=== PATIENT | female | born 1950 | race Caucasian/White ===

== ENCOUNTER 2017-06-18 16:40 | Inpatient (IN) | payer MEDICARE, OTHER ==
[~2017-06-18] VITALS: Ht 167.6 cm; Wt 104.2 kg
[~2017-06-18 16:40] MED LIST: GLUCOPHAGE500 MG/TAB PO; HYZAAR 25 MG-101 TAB PO; LANTUS100 U/ML SQ; NOVOLOG 100U100 U/M1 SQ; ZOCOR 20MG20 MG PO; ZOCOR5 MG
[2017-06-18 16:59] VITALS: BP 156/65; PULSE 84; TEMP 99.5
[2017-06-18] MEDS ORDERED: DITROPAN XL10 MG PO (17:12)
[2017-06-18] MEDS ORDERED: PLAVIX 75MG TAB75 MG PO (17:12)
[2017-06-18] MEDS ORDERED: NORVASC 10MG10 MG PO (17:12)
[2017-06-18] MEDS ORDERED: COREG 25MG25 MG/TAB PO (17:12)
[2017-06-18] MEDS ORDERED: FLONASE NASAL S16 GM NS (17:12)
[2017-06-18] MEDS ORDERED: TRESIBA FL100 UNIT/1 SQ (17:12)
[2017-06-18] MEDS ORDERED: ASPIRIN 81M81 MG/TA2 PO (18:00)
[2017-06-18] MEDS ORDERED: PEPCID 20MG TAB20 MG PO (18:00)
[2017-06-18] MEDS ORDERED: ZYRTEC10MGSGL PO (18:00)
[2017-06-18] MEDS ORDERED: BENICAR HCT 251 TAB PO (18:01)
[2017-06-18] MEDS ORDERED: NOVOLOG FLEX100 U/ML SQ (18:03)
[2017-06-18] MEDS ORDERED: ZOCOR 20MG20 MG PO (18:14)
[2017-06-18] MEDS ORDERED: ROCEPHIN VIA1 G/VIAL IJ (18:17)
[2017-06-18] MEDS ORDERED: CIPRO 500MG TA500 MG PO (18:18)
[2017-06-18 19:22] VITALS: BP 165/69; PULSE 84; TEMP 100.3
[2017-06-18 23:12] VITALS: BP 146/70; PULSE 89; TEMP 98.9
[2017-06-19] VITALS (660 sets, daily range): BP systolic 120–167; BP diastolic 55–97; PULSE 74–91; TEMP 97.6–99.1; O2SAT 86–98
[2017-06-19 08:07] LABS: INR 1.3 (0.8-3.0); PROTHROMBIN TIME 14.3 SECONDS (9.7-12.8)
[2017-06-19 08:09] LABS: MEAN CELL VOLUME 98 fl (80.0-100.0); MEAN CORPUSCULAR HGB CONC 33 g/dl (33.0-37.0); MEAN PLATELET VOLUME 10.1 fl (7.4-10.4); PLATELET COUNT 201 K/mm3 (130-400); RED BLOOD COUNT 3.24 M/mm3 (4.10-5.30); REDCELL DISTRIBUTION WIDTH-CV 13.1 % (11.5-14.5); WHITE BLOOD COUNT 7.3 K/mm3 (4.8-10.8)
[2017-06-19 08:12] LABS: CALCIUM 8.5 mg/dL (8.4-10.2); CREATININE, serum 0.8 mg/dL (0.52-1.25); POTASSIUM 3.6 mmol/L (3.4-5.0)
[2017-06-19 08:13] LABS: HEMATOCRIT 31.7 % (37.0-47.0); HEMOGLOBIN 10.3 g/dl (12.5-16.0); MEAN CORPUSCULAR HEMOGLOBIN 32 pg (27.0-31.0)
[2017-06-20] VITALS (264 sets, daily range): BP systolic 121–158; BP diastolic 49–79; PULSE 62–80; TEMP 97.8–98.8; O2SAT 85–98
[2017-06-20 06:05] LABS: BASO % 0.3 % (0.0-2.0); EOS # 0.1 (0.0-0.7); EOS % 1.8 % (0-4.0); GRAN # 4.8 (1.4-6.5); GRAN % 61.5 % (42.2-75.2); LYMPH # 1.9 (1.2-3.4); LYMPH % 25.1 % (20.0-51.0); MEAN CELL VOLUME 97 fl (80.0-100.0); MEAN CORPUSCULAR HGB CONC 32 g/dl (33.0-37.0); MEAN PLATELET VOLUME 9.8 fl (7.4-10.4); MONO # 0.8 (0.1-0.6); MONO % 10.9 % (1.7-9.3); PLATELET COUNT 208 K/mm3 (130-400); RED BLOOD COUNT 3.16 M/mm3 (4.10-5.30); REDCELL DISTRIBUTION WIDTH-CV 12.9 % (11.5-14.5); WHITE BLOOD COUNT 7.7 K/mm3 (4.8-10.8)
[2017-06-20 06:11] LABS: HEMATOCRIT 30.7 % (37.0-47.0); HEMOGLOBIN 9.9 g/dl (12.5-16.0); MEAN CORPUSCULAR HEMOGLOBIN 31 pg (27.0-31.0)
[2017-06-20 06:22] LABS: CALCIUM 8.3 mg/dL (8.4-10.2); CREATININE, serum 0.84 mg/dL (0.52-1.25); POTASSIUM 3.2 mmol/L (3.4-5.0)
[2017-06-21 00:33] VITALS: BP 138/65; PULSE 60; TEMP 98.1
[2017-06-21 04:09] VITALS: BP 150/66; PULSE 67; TEMP 98.9
[2017-06-21 08:14] VITALS: BP 142/51; PULSE 69; TEMP 97.7
[2017-06-21] MEDS ORDERED: CEFTIN 250250 MG/TAB PO (09:08)
[2017-06-21] MEDS ORDERED: NITROSTAT0.4 MG/TAB SL (09:09)
[2017-06-21] MEDS ORDERED: KEPPRA250 MG PO (09:14)
[2017-06-21 11:15] VITALS: BP 118/52; PULSE 57; TEMP 98.3
== END 2017-06-21 17:15 | disposition home or self-care (01) | DRG 246 ==
LOC: ICU 16:40 → MEDICAL 16:40 → ICU 06-19 09:28 → MEDICAL 06-20 20:20
PROVIDERS: Internal Medicine Interventional Cardiology
PROC: 027135Z Dilation of Coronary Artery, Two Arteries with Two Drug-eluting Intraluminal Devices, Percutaneous Approach (ICD-10-PCS; principal; 2017-06-19)
PROC: B2111ZZ Fluoroscopy of Multiple Coronary Arteries using Low Osmolar Contrast (ICD-10-PCS; 2017-06-19)
DX: I21.4 Non-ST elevation (NSTEMI) myocardial infarction (principal); Q28.2 Arteriovenous malformation of cerebral vessels; N39.0 Urinary tract infection, site not specified; N17.9 Acute kidney failure, unspecified; G40.89 Other seizures; I25.10 Atherosclerotic heart disease of native coronary artery without angina pectoris; B96.20 Unspecified Escherichia coli [E. coli] as the cause of diseases classified elsewhere; I69.311 Memory deficit following cerebral infarction; I10 Essential (primary) hypertension; E11.9 Type 2 diabetes mellitus without complications; Z79.4 Long term (current) use of insulin; Z87.891 Personal history of nicotine dependence
CPT/HCPCS: 99223; 99232-AI; 99239; A9585; C1725; C1760; C1769; C1874; C1887; C1894; C9600; C9601; J0583; J0696; J1815; J2250; J3010; Q9967

== ENCOUNTER 2017-08-23 11:25 | Inpatient (IN) | payer MEDICARE, OTHER ==
[~2017-08-23] VITALS: Ht 167.6 cm; Wt 101.1 kg
[~2017-08-23 11:25] MED LIST changes: +ASPIRIN 81M81 MG/TA2 PO; +BENICAR HCT 251 TAB PO; +CEFTIN 250250 MG/TAB PO; +CIPRO 500MG TA500 MG PO; +COREG 25MG25 MG/TAB PO; +DITROPAN XL10 MG PO; +FLONASE NASAL S16 GM NS; +KEPPRA250 MG PO; +NITROSTAT0.4 MG/TAB SL; +NORVASC 10MG10 MG PO; +NOVOLOG FLEX100 U/ML SQ; +PEPCID 20MG TAB20 MG PO; +PLAVIX 75MG TAB75 MG PO; +ROCEPHIN VIA1 G/VIAL IJ; +TRESIBA FL100 UNIT/1 SQ; +ZYRTEC10MGSGL PO
[2017-08-23 12:26] LABS: INR 1.2 (0.8-3.0); PROTHROMBIN TIME 12.9 SECONDS (9.7-12.8)
[2017-08-23 12:27] LABS: BASO % 0.4 % (0.0-2.0); EOS % 0.2 % (0-4.0); GRAN # 6.2 (1.4-6.5); GRAN % 75.2 % (42.2-75.2); HEMATOCRIT 37.1 % (37.0-47.0); HEMOGLOBIN 12.6 g/dl (12.5-16.0); LYMPH # 1.5 (1.2-3.4); LYMPH % 17.7 % (20.0-51.0); MEAN CELL VOLUME 93 fl (80.0-100.0); MEAN CORPUSCULAR HEMOGLOBIN 32 pg (27.0-31.0); MEAN CORPUSCULAR HGB CONC 34 g/dl (33.0-37.0); MEAN PLATELET VOLUME 9.6 fl (7.4-10.4); MONO # 0.5 (0.1-0.6); PLATELET COUNT 252 K/mm3 (130-400); WHITE BLOOD COUNT 8.3 K/mm3 (4.8-10.8)
[2017-08-23 12:28] LABS: COLLECTION METHOD CATHETER
[2017-08-23 12:46] LABS: ADJUSTED CALCIUM 9.1 mg/dL (8.4-10.2); ALANINE AMINOTRANSFERASE 35 U/L (9-52); ALBUMIN 4.4 gm/dL (3.5-5.0); ALKALINE PHOSPHATASE 138 U/L (50-136); ANION GAP 12 mmol/L (7-16); BILIRUBIN,TOTAL 0.8 mg/dL (0.0-1.0); BLOOD UREA NITROGEN 16 mg/dL (7-17); CALCIUM 9.4 mg/dL (8.4-10.2); CARBON DIOXIDE 25 mmol/L (22-30); CHLORIDE 100 mmol/L (98-107); CREATINE KINASE 73 U/L (30-135); CREATININE, serum 0.77 mg/dL (0.52-1.25); GLUCOSE 273 mg/dL (74-106); POTASSIUM 3.8 mmol/L (3.4-5.0); SODIUM 137 mmol/L (137-145); TOTAL PROTEIN 7.5 gm/dL (6.4-8.2)
[2017-08-23 12:48] LABS: C-REACTIVE PROTEIN < 0.5 mg/dL (0.0-0.9)
[2017-08-23 12:48] LABS: PH 5 (5-8); SQUAMOUS EPITHELIAL 0-2 /hpf; URINE APPEARANCE Hazy; URINE BACTERIA None Seen /hpf; URINE BILIRUBIN Negative (NEGATIVE); URINE BLOOD 1+ (NEGATIVE); URINE COLOR Yellow; URINE GLUCOSE 3+ (NEGATIVE); URINE KETONE 1+ (NEGATIVE); URINE LEUKOCYTE ESTERASE Negative (NEGATIVE); URINE PROTEIN(semi-quant) 1+ (NEGATIVE); URINE RBC 0-2 /hpf; URINE UROBILINOGEN Negative (NEGATIVE); URINE WBC 20-50 /hpf
[2017-08-23 13:32] LABS: B-TYPE NATRIURETIC PEPTIDE 151 pg/mL (0-125); TROPONIN-I < 0.012 ng/mL (0.000-0.034)
[2017-08-23 15:18] VITALS: BP 103/45; PULSE 96; TEMP 97.1
[2017-08-23] MEDS ORDERED: KEPPRA 500MG500 MG PO (15:38)
[2017-08-23] MEDS ORDERED: CRESTOR40 MG PO (15:42)
[2017-08-23 20:12] VITALS: BP 142/59; PULSE 84; TEMP 99
[2017-08-23 23:59] VITALS: BP 138/58; PULSE 85; TEMP 100.3
[2017-08-24 03:48] VITALS: BP 151/70; PULSE 79; TEMP 99
[2017-08-24 07:43] LABS: BASO % 0.6 % (0.0-2.0); EOS # 0.1 (0.0-0.7); EOS % 1.6 % (0-4.0); GRAN # 3.3 (1.4-6.5); GRAN % 52.4 % (42.2-75.2); LYMPH # 2.4 (1.2-3.4); LYMPH % 37.3 % (20.0-51.0); MEAN CELL VOLUME 94 fl (80.0-100.0); MEAN CORPUSCULAR HGB CONC 33 g/dl (33.0-37.0); MEAN PLATELET VOLUME 9.8 fl (7.4-10.4); MONO # 0.5 (0.1-0.6); MONO % 7.8 % (1.7-9.3); PLATELET COUNT 236 K/mm3 (130-400); RED BLOOD COUNT 3.62 M/mm3 (4.10-5.30); WHITE BLOOD COUNT 6.4 K/mm3 (4.8-10.8)
[2017-08-24 07:51] LABS: CALCIUM 8.5 mg/dL (8.4-10.2); CREATININE, serum 0.71 mg/dL (0.52-1.25); POTASSIUM 3.2 mmol/L (3.4-5.0)
[2017-08-24 08:00] VITALS: BP 137/69; PULSE 72; TEMP 98.6
[2017-08-24 08:04] LABS: HEMATOCRIT 33.9 % (37.0-47.0); HEMOGLOBIN 11.3 g/dl (12.5-16.0); MEAN CORPUSCULAR HEMOGLOBIN 31 pg (27.0-31.0)
[2017-08-24 13:14] VITALS: BP 128/51; PULSE 71; TEMP 98.6
[2017-08-24 16:13] VITALS: BP 122/57; PULSE 66; TEMP 98
[2017-08-24 20:07] VITALS: BP 127/54; BP 197/54; PULSE 59; TEMP 98.6
[2017-08-25 00:44] VITALS: BP 109/82; PULSE 80; TEMP 98.6
[2017-08-25 05:21] VITALS: BP 120/65; PULSE 80; TEMP 98.1
[2017-08-25 07:19] LABS: BASO % 0.6 % (0.0-2.0); EOS # 0.2 (0.0-0.7); GRAN # 3.6 (1.4-6.5); GRAN % 56.9 % (42.2-75.2); LYMPH % 31.9 % (20.0-51.0); MEAN CELL VOLUME 94 fl (80.0-100.0); MEAN CORPUSCULAR HGB CONC 33 g/dl (33.0-37.0); MONO # 0.5 (0.1-0.6); MONO % 7.3 % (1.7-9.3); PLATELET COUNT 229 K/mm3 (130-400); RED BLOOD COUNT 3.76 M/mm3 (4.10-5.30); WHITE BLOOD COUNT 6.3 K/mm3 (4.8-10.8)
[2017-08-25 07:23] LABS: HEMATOCRIT 35.4 % (37.0-47.0); HEMOGLOBIN 11.8 g/dl (12.5-16.0); MEAN CORPUSCULAR HEMOGLOBIN 31 pg (27.0-31.0)
[2017-08-25 07:38] LABS: CALCIUM 8.5 mg/dL (8.4-10.2); CREATININE, serum 0.79 mg/dL (0.52-1.25); POTASSIUM 3.7 mmol/L (3.4-5.0)
[2017-08-25 08:14] VITALS: BP 137/62; PULSE 77; TEMP 98.4
[2017-08-25] MEDS ORDERED: CEFTIN 250250 MG/TAB PO (08:46)
== END 2017-08-25 11:29 | disposition home or self-care (01) | DRG 690 ==
LOC: COL.ER 11:25 → MEDICAL 13:37
PROVIDERS: Emergency Medicine; Nurse Practitioner Family
DX: N39.0 Urinary tract infection, site not specified (principal); Z66 Do not resuscitate; I25.10 Atherosclerotic heart disease of native coronary artery without angina pectoris; B96.20 Unspecified Escherichia coli [E. coli] as the cause of diseases classified elsewhere; Z95.5 Presence of coronary angioplasty implant and graft; E11.9 Type 2 diabetes mellitus without complications; I10 Essential (primary) hypertension; E87.6 Hypokalemia; Z87.891 Personal history of nicotine dependence; I69.318 Other symptoms and signs involving cognitive functions following cerebral infarction; I69.312 Visuospatial deficit and spatial neglect following cerebral infarction
CPT/HCPCS: 99222-AI; 99232-AI; 99239; J0696; J1650; J1815; J2405; J7030

== ENCOUNTER → 2017-09-19 | Outpatient (CLI) | payer MEDICARE, OTHER ==
[~2017-09-19] MED LIST changes: +CRESTOR40 MG PO; +KEPPRA 500MG500 MG PO
== END ==
LOC: COL.RAD 11:15
DX: N28.89 Other specified disorders of kidney and ureter (principal); N39.3 Stress incontinence (female) (male); Z96.0 Presence of urogenital implants

== ENCOUNTER → 2017-09-20 | Outpatient (CLI) | payer MEDICARE, OTHER | LOC: SUN.DIA 09:26 | DX: E11.9 Type 2 diabetes mellitus without complications (principal); Z79.4 Long term (current) use of insulin; E78.5 Hyperlipidemia, unspecified; I11.9 Hypertensive heart disease without heart failure; I67.9 Cerebrovascular disease, unspecified; E66.9 Obesity, unspecified; Z68.36 Body mass index [BMI] 36.0-36.9, adult; Z71.3 Dietary counseling and surveillance; Z87.891 Personal history of nicotine dependence | CPT/HCPCS: G0108 ==

== ENCOUNTER → 2017-10-03 | Outpatient (CLI) | payer MEDICARE, OTHER | LOC: SUN.DIA 09-19 09:22 | DX: E11.9 Type 2 diabetes mellitus without complications (principal); Z79.4 Long term (current) use of insulin; I67.9 Cerebrovascular disease, unspecified; I11.9 Hypertensive heart disease without heart failure; E78.5 Hyperlipidemia, unspecified; E66.9 Obesity, unspecified; Z71.3 Dietary counseling and surveillance; Z87.891 Personal history of nicotine dependence | CPT/HCPCS: G0109 ==

== ENCOUNTER → 2017-10-04 | Outpatient (CLI) | payer MEDICARE, OTHER | LOC: SUN.DIA 10:59 | DX: E11.9 Type 2 diabetes mellitus without complications (principal); Z79.4 Long term (current) use of insulin; I11.9 Hypertensive heart disease without heart failure; E78.5 Hyperlipidemia, unspecified; E66.9 Obesity, unspecified; Z68.35 Body mass index [BMI] 35.0-35.9, adult; Z71.3 Dietary counseling and surveillance; Z87.891 Personal history of nicotine dependence ==

== ENCOUNTER → 2017-10-10 | Outpatient (CLI) | payer MEDICARE, OTHER | LOC: SUN.DIA 10:38 | DX: E11.9 Type 2 diabetes mellitus without complications (principal); Z79.4 Long term (current) use of insulin; I67.9 Cerebrovascular disease, unspecified; I11.9 Hypertensive heart disease without heart failure; E78.5 Hyperlipidemia, unspecified; E66.9 Obesity, unspecified; Z71.3 Dietary counseling and surveillance; Z87.891 Personal history of nicotine dependence | CPT/HCPCS: G0109 ==

== ENCOUNTER 2017-10-15 20:57 | Emergency (ER) | payer MEDICARE, OTHER ==
[~2017-10-15] VITALS: Ht 167.6 cm; Wt 97.7 kg
[2017-10-15 20:58] VITALS: TEMP 98.4
[2017-10-15 23:13] VITALS: BP 160/81; PULSE 74
== END 2017-10-15 23:15 | disposition home or self-care (01) ==
LOC: COL.ER 20:57
DX: S01.81XA Laceration without foreign body of other part of head, initial encounter (principal); E11.9 Type 2 diabetes mellitus without complications; I10 Essential (primary) hypertension; I25.2 Old myocardial infarction; Z86.73 Personal history of transient ischemic attack (TIA), and cerebral infarction without residual deficits; Z79.82 Long term (current) use of aspirin; Z79.4 Long term (current) use of insulin; W01.198A Fall on same level from slipping, tripping and stumbling with subsequent striking against other object, initial encounter; Y92.009 Unspecified place in unspecified non-institutional (private) residence as the place of occurrence of the external cause

== ENCOUNTER → 2017-10-17 | Outpatient (CLI) | payer MEDICARE, OTHER | LOC: SUN.DIA 18:00 | DX: E11.9 Type 2 diabetes mellitus without complications (principal); Z79.4 Long term (current) use of insulin; I67.9 Cerebrovascular disease, unspecified; I11.9 Hypertensive heart disease without heart failure; E78.5 Hyperlipidemia, unspecified; E66.9 Obesity, unspecified; Z71.3 Dietary counseling and surveillance; Z87.891 Personal history of nicotine dependence | CPT/HCPCS: G0109 ==

== ENCOUNTER → 2017-10-21 | Emergency (ER) | payer MEDICARE, OTHER ==
[2017-10-21 13:02] VITALS: BP 153/68; PULSE 78; TEMP 97.7
== END ==
LOC: COL.ER 12:55
DX: S01.81XD Laceration without foreign body of other part of head, subsequent encounter (principal); X58.XXXD Exposure to other specified factors, subsequent encounter

== ENCOUNTER → 2017-11-07 | Outpatient (CLI) | payer MEDICARE, OTHER | LOC: SUN.DIA 10-25 10:56 | DX: E11.9 Type 2 diabetes mellitus without complications (principal); Z79.4 Long term (current) use of insulin; I67.9 Cerebrovascular disease, unspecified; I11.9 Hypertensive heart disease without heart failure; E78.5 Hyperlipidemia, unspecified; E66.9 Obesity, unspecified; Z71.3 Dietary counseling and surveillance; Z87.891 Personal history of nicotine dependence | CPT/HCPCS: G0109 ==

== ENCOUNTER → 2017-11-20 | Outpatient (CLI) | payer MEDICARE, OTHER | LOC: SUN.DIA 12:52 | DX: E11.9 Type 2 diabetes mellitus without complications (principal); Z79.4 Long term (current) use of insulin; I67.9 Cerebrovascular disease, unspecified; I11.9 Hypertensive heart disease without heart failure; E78.5 Hyperlipidemia, unspecified; E66.9 Obesity, unspecified; Z68.35 Body mass index [BMI] 35.0-35.9, adult; Z71.3 Dietary counseling and surveillance; Z87.891 Personal history of nicotine dependence ==

== ENCOUNTER → 2018-01-22 | Outpatient (CLI) | payer MEDICARE, OTHER | LOC: SUN.DIA 10:34 | DX: E11.9 Type 2 diabetes mellitus without complications (principal); Z79.4 Long term (current) use of insulin; I67.9 Cerebrovascular disease, unspecified; I11.9 Hypertensive heart disease without heart failure; E78.5 Hyperlipidemia, unspecified; E66.9 Obesity, unspecified; Z68.36 Body mass index [BMI] 36.0-36.9, adult; Z71.3 Dietary counseling and surveillance; Z87.891 Personal history of nicotine dependence ==

== ENCOUNTER → 2018-06-20 | Outpatient (CLI) | payer MEDICARE, OTHER | LOC: SUN.DIA 05-28 16:20 | DX: E11.9 Type 2 diabetes mellitus without complications (principal); E78.5 Hyperlipidemia, unspecified; I10 Essential (primary) hypertension; E66.9 Obesity, unspecified; Z79.4 Long term (current) use of insulin ==

== ENCOUNTER → 2018-07-31 | Outpatient (CLI) | payer MEDICARE, OTHER | LOC: SUN.DIA 11:11 | DX: E11.9 Type 2 diabetes mellitus without complications (principal); E78.5 Hyperlipidemia, unspecified; I10 Essential (primary) hypertension; E66.9 Obesity, unspecified; Z79.4 Long term (current) use of insulin | CPT/HCPCS: G0270 ==

== ENCOUNTER → 2018-09-11 | Outpatient (CLI) | payer MEDICARE, OTHER | LOC: SUN.DIA 10:56 | DX: E11.9 Type 2 diabetes mellitus without complications (principal); E78.5 Hyperlipidemia, unspecified; I10 Essential (primary) hypertension; E66.9 Obesity, unspecified; Z79.4 Long term (current) use of insulin | CPT/HCPCS: G0270 ==

== ENCOUNTER → 2019-02-04 | Outpatient (CLI) | payer MEDICARE, OTHER | LOC: MC.RAD 09:30 | DX: Z12.31 Encounter for screening mammogram for malignant neoplasm of breast (principal) ==

== ENCOUNTER 2019-02-22 18:52 | Inpatient (IN) | payer MEDICARE, OTHER ==
[~2019-02-22] VITALS: Ht 167.6 cm; Wt 100.7 kg
[2019-02-22 19:38] LABS: BASO % 0.4 % (0.0-2.0); EOS # 0.2 (0.0-0.7); EOS % 2.4 % (0-4.0); GRAN # 6.5 (1.4-6.5); GRAN % 84.5 % (42.2-75.2); HEMATOCRIT 37.8 % (37.0-47.0); HEMOGLOBIN 12.6 g/dl (12.5-16.0); LYMPH # 0.6 (1.2-3.4); LYMPH % 8.2 % (20.0-51.0); MEAN CELL VOLUME 94 fl (80.0-100.0); MEAN CORPUSCULAR HEMOGLOBIN 31 pg (27.0-31.0); MEAN CORPUSCULAR HGB CONC 33 g/dl (33.0-37.0); MEAN PLATELET VOLUME 9.2 fl (7.4-10.4); MONO # 0.3 (0.1-0.6); MONO % 4.1 % (1.7-9.3); PLATELET COUNT 214 K/mm3 (130-400); RED BLOOD COUNT 4.02 M/mm3 (4.10-5.30); REDCELL DISTRIBUTION WIDTH-CV 13.4 % (11.5-14.5)
[2019-02-22 19:51] LABS: ALBUMIN 3.8 gm/dL (3.5-5.0); BILIRUBIN,TOTAL 0.6 mg/dL (0.0-1.0); CALCIUM 8.7 mg/dL (8.4-10.2); CREATININE, serum 1.04 (0.52-1.25); POTASSIUM 3.8 mmol/L (3.4-5.0); TOTAL PROTEIN 6.7 gm/dL (6.4-8.2)
[2019-02-22] MEDS ORDERED: TRULICITY0.75 MG/0. (20:17)
[2019-02-22] MEDS ORDERED: BACTRIM DS 8001 TAB (20:17)
[2019-02-22 20:25] LABS: COLLECTION METHOD CLEAN CATCH
[2019-02-22 20:33] LABS: MUCOUS Present /lpf; PH 5 (5-8); SQUAMOUS EPITHELIAL 0-2 /hpf; URINE APPEARANCE Hazy; URINE BACTERIA None Seen /hpf; URINE BILIRUBIN Negative (NEGATIVE); URINE BLOOD Negative (NEGATIVE); URINE COLOR Yellow; URINE GLUCOSE Negative (NEGATIVE); URINE KETONE Negative (NEGATIVE); URINE LEUKOCYTE ESTERASE Negative (NEGATIVE); URINE NITRATE Negative (NEGATIVE); URINE PROTEIN(semi-quant) 2+ (NEGATIVE); URINE RBC 0-2 /hpf; URINE UROBILINOGEN Negative (NEGATIVE)
[2019-02-22 21:16] LABS: INR 1.4 (0.8-3.0); PROTHROMBIN TIME 15.9 SECONDS (9.7-12.8)
[2019-02-22 22:55] VITALS: BP 120/72; PULSE 84; TEMP 98.6
[2019-02-22] MEDS ORDERED: THE MEDICINE S200 M2 PO (23:38)
--- NOTE | 2019-02-23 01:11 | NUR ---
PT AWAKE IN ROOM. PT WAS ADVISED THAT STROKE SCALE WILL BE DONE EVERY HOUR AND NEURO'S EVERY 2 HOURS. PT'S BS 109, GAVE SANDWICH BOX AND WATER, REQUESTED. PT HAS NO S/S OF PAIN OR DISCOMFORT NOTED. CALL LIGHT WITHIN REACH.
[2019-02-23 03:31] VITALS: BP 153/68; PULSE 90; TEMP 99.1
--- NOTE | 2019-02-23 04:41 | NUR ---
PLACED WALKER IN PT'S ROOM. PT ADVISES THAT SHE IS SUPPOSE TO USE A WALKER AT HOME AND SHE DOES HAVE ONE, BUT SHE DOES NOT USE IT VERY OFTEN. PT REFUSES TO USE SCDs. CALL LIGHT WITHIN REACH.
[2019-02-23 06:25] LABS: RED BLOOD COUNT 3.59 M/mm3 (4.10-5.30)
[2019-02-23 06:26] LABS: BASO % 0.4 % (0.0-2.0); EOS # 0.2 (0.0-0.7); GRAN % 71.3 % (42.2-75.2); HEMOGLOBIN 11.2 g/dl (12.5-16.0); LYMPH % 17.1 % (20.0-51.0); MEAN CELL VOLUME 96 fl (80.0-100.0); MEAN CORPUSCULAR HEMOGLOBIN 31 pg (27.0-31.0); MEAN CORPUSCULAR HGB CONC 33 g/dl (33.0-37.0); MEAN PLATELET VOLUME 9.7 fl (7.4-10.4); MONO # 0.4 (0.1-0.6); MONO % 6.7 % (1.7-9.3); PLATELET COUNT 157 K/mm3 (130-400); REDCELL DISTRIBUTION WIDTH-CV 13.6 % (11.5-14.5)
[2019-02-23 06:35] LABS: CALCIUM 7.9 mg/dL (8.4-10.2); CREATININE, serum 0.96 (0.52-1.25); POTASSIUM 3.4 mmol/L (3.4-5.0)
[2019-02-23 06:36] LABS: HEMATOCRIT 34.4 % (37.0-47.0)
--- NOTE | 2019-02-23 07:23 | NUR ---
UNEVENTFUL NIGHT, PT RESTED WELL. PT DID FINE ON NEURO CHECKS AND STROKE SCALE, BUT WHEN AMBULATING, PT WAS VERY UNSTEADY. DENIES PAIN OR DISCOMFORT AND CALL LIGHT WITHIN REACH.
[2019-02-23 07:29] VITALS: BP 152/58; PULSE 88; TEMP 98.2
--- NOTE | 2019-02-23 08:32 | NUR ---
Pt is awake and A/Ox4. She denies pain at this time. Saline lock to right FA is free of complications. Pt is up with 1x assist with walker without complications. Pt has steady gait but seems to get ahead of herself with the walker. She states she feels more stable today. Neuro checks are unremarkable. Pt denies any other needs.
--- NOTE | 2019-02-23 10:29 | NUR ---
Patient lives at home with her (Per Anderson) in [place], [place] and plans to return home with her upon recovery. Patient uses a walker for mobility assistance as needed and has no been ambulating as well recently due to the left side of her body being weaker/numb. Patient's is her primary caregiver, the patient's primary care physician is Dr. Damien Machuca, her pharmacy is [facility] ([facility] and she does have advance directives of healthcare completed. Patient has no further needs at this time and social worker psychiatric will follow up as needed.
[2019-02-23 11:04] VITALS: BP 112/83; PULSE 82; TEMP 98.5
--- NOTE | 2019-02-23 11:22 | NUR ---
Pt requested PRN tylenol for mild back pain, rating 2/10.
--- NOTE | 2019-02-23 13:19 | NUR ---
Pt is sleeping soundly in bed. at bedside, denies any other needs from staff.
[2019-02-23 15:56] VITALS: BP 126/50; PULSE 77; TEMP 98.4
--- NOTE | 2019-02-23 16:54 | NUR ---
Pt has had an overall uneventful shift. Neuro checks remain unremarkable. Pt has stated she has had generalized back pain which tylenol has helped with. Denies any other needs, will monitor.
[2019-02-23 20:32] VITALS: BP 105/45; PULSE 76; TEMP 98
--- NOTE | 2019-02-23 20:35 | NUR ---
Shift assessment complete. Pt resting in bed, awake, a&o, cooperative c cares. Pt denies pain or other c/o at this time. INT patent. Pt denies needs at this time. Call light in reach, will monitor.
[2019-02-24 01:40] VITALS: BP 146/67; PULSE 84; TEMP 98.2
--- NOTE | 2019-02-24 05:56 | NUR ---
Pt resting in bed, condition unchanged. Pt has rested well this shift c very few needs. Reports occasional pain to L foot, broken toes, but has denied need for intervention. SB assist to BSC x2 this shift. Pt s needs at this time. Call light in reach, bed alarm on.
[2019-02-24 06:20] LABS: BASO % 0.7 % (0.0-2.0); EOS # 0.2 (0.0-0.7); EOS % 4.2 % (0-4.0); GRAN # 2.2 (1.4-6.5); GRAN % 50.4 % (42.2-75.2); HEMOGLOBIN 11.5 g/dl (12.5-16.0); LYMPH # 1.4 (1.2-3.4); LYMPH % 32.9 % (20.0-51.0); MEAN CELL VOLUME 96 fl (80.0-100.0); MEAN CORPUSCULAR HEMOGLOBIN 31 pg (27.0-31.0); MEAN CORPUSCULAR HGB CONC 32 g/dl (33.0-37.0); MEAN PLATELET VOLUME 9.6 fl (7.4-10.4); MONO # 0.5 (0.1-0.6); MONO % 11.6 % (1.7-9.3); PLATELET COUNT 169 K/mm3 (130-400); REDCELL DISTRIBUTION WIDTH-CV 13.5 % (11.5-14.5)
[2019-02-24 06:32] LABS: HEMATOCRIT 35.5 % (37.0-47.0)
[2019-02-24 06:43] LABS: CALCIUM 8.4 mg/dL (8.4-10.2); CREATININE, serum 0.86 (0.52-1.25); POTASSIUM 3.8 mmol/L (3.4-5.0)
--- NOTE | 2019-02-24 07:00 | NUR ---
Report received from MISTI Bonilla. PT in bed resting, wanting assistance to bathroom, SBA provided, gait unsteady from pain in L 4th &5th metatarsal fractures. Back to bed, will continue to monitor.
[2019-02-24 07:21] VITALS: BP 142/89; PULSE 77; TEMP 98.6
--- NOTE | 2019-02-24 08:12 | NUR ---
Assessment charted. Called MRI and pt will be NPO until MRA completed this am. PT agreeable to this, took meds with sips of water. L foot elevated on pillows, PRN pain meds given for pain at 4th and 5th metatarsal with diffuse ecchymosis. Pt rates pain at 2/10. Pt alert and oriented, INT to RF. Denies other needs, will continue to monitor.
--- NOTE | 2019-02-24 08:37 | NUR ---
Call back received from NICK Atkins for Dr. Wilcox. She will take a look at hte Xrays and will be up after surgery.
--- NOTE | 2019-02-24 09:08 | NUR ---
Initial visit; Patient thanked Consulting Services Project Manager for looking in on her and keeping her in Consulting Services Project Manager's prayers.
[2019-02-24] MEDS ORDERED: PLAVIX 75MG TAB75 MG PO (10:27)
[2019-02-24 11:18] VITALS: BP 125/59; PULSE 70; TEMP 98.1
--- NOTE | 2019-02-24 14:00 | NUR ---
Discharge teaching completed at this time. INT d/c'd by student nurse, tip intact. Discussed new script sent to pharmacy, f/u appointments, pt left with all belongings, escorted out via w/c by student nurse and myself. to drive home, criteria met.
== END 2019-02-24 14:10 | disposition home or self-care (01) | DRG 65 ==
LOC: COL.ER 18:52 → MEDICAL 21:40
PROVIDERS: Emergency Medicine; Nurse Practitioner; ADMIT Hospitalist
DX: I63.9 Cerebral infarction, unspecified (principal); G81.94 Hemiplegia, unspecified affecting left nondominant side; N39.0 Urinary tract infection, site not specified; R26.0 Ataxic gait; H53.8 Other visual disturbances; I10 Essential (primary) hypertension; R29.703 NIHSS score 3; E78.5 Hyperlipidemia, unspecified; E11.9 Type 2 diabetes mellitus without complications; S92.515A Nondisplaced fracture of proximal phalanx of left lesser toe(s), initial encounter for closed fracture; I25.10 Atherosclerotic heart disease of native coronary artery without angina pectoris; Z95.5 Presence of coronary angioplasty implant and graft; G47.33 Obstructive sleep apnea (adult) (pediatric); Z91.81 History of falling; R56.9 Unspecified convulsions; Z79.4 Long term (current) use of insulin; Z87.891 Personal history of nicotine dependence; W18.30XA Fall on same level, unspecified, initial encounter
CPT/HCPCS: 99239; A9585; J1815; J7030

== ENCOUNTER → 2019-04-11 | Outpatient (CLI) | payer MEDICARE, OTHER ==
[~2019-04-11] MED LIST changes: +BACTRIM DS 8001 TAB; +THE MEDICINE S200 M2 PO; +TRULICITY0.75 MG/0.
== END ==
LOC: COL.RAD 07:37
DX: Z01.812 Encounter for preprocedural laboratory examination (principal); I65.23 Occlusion and stenosis of bilateral carotid arteries; Q04.8 Other specified congenital malformations of brain
CPT/HCPCS: Q9967

== ENCOUNTER → 2020-11-01 | Outpatient (CLI) | payer MEDICARE, OTHER | LOC: MC.RAD 11:00 | DX: Z12.31 Encounter for screening mammogram for malignant neoplasm of breast (principal); N63.20 Unspecified lump in the left breast, unspecified quadrant ==

== ENCOUNTER → 2020-11-04 | Outpatient (CLI) | payer MEDICARE, OTHER | LOC: MC.RAD 11:00 | DX: N60.02 Solitary cyst of left breast (principal) ==

== ENCOUNTER → 2022-02-28 | Outpatient (CLI) | payer MEDICARE, OTHER | LOC: MC.RAD 11:37 | DX: Z12.31 Encounter for screening mammogram for malignant neoplasm of breast (principal); N64.89 Other specified disorders of breast ==